=== PATIENT | female | born 1965 | race Caucasian/White ===

== ENCOUNTER 2018-09-12 08:41 | Emergency (ER) | payer OTHER ==
[2018-09-12 08:51] VITALS: TEMP 98.1; O2SAT 94
[2018-09-12 09:28] VITALS: BP 164/84; PULSE 98; RESP 20
[2018-09-12] MEDS ORDERED: OXYCODONE HYDROCHLORIDE 5 MG TAB ONE (09:44)
[2018-09-12] MEDS ORDERED: OXYCODONE HYDROCHLORIDE 5 MG TAB PO SCH (09:45)
== END 2018-09-12 10:07 | disposition home or self-care (01) | DRG 206 ==
LOC: ED 08:41
DX: S22.32XA Fracture of one rib, left side, initial encounter for closed fracture (principal); R40.2352 Coma scale, best motor response, localizes pain, at arrival to emergency department; R40.2142 Coma scale, eyes open, spontaneous, at arrival to emergency department; R40.2252 Coma scale, best verbal response, oriented, at arrival to emergency department
CPT/HCPCS: 71101; 99282; 99283; G0390; A9270-GY